=== PATIENT | female | born 1940 | race Asian ===

== ENCOUNTER 2019-05-31 08:34 | Inpatient (IN) | payer OTHER, BC ==
--- NOTE | 2019-05-31 09:19 | PDOC ---
History of Present Illness - General Chief Complaint: Rectal Bleed Stated Complaint: ABD PAIN / RECTAL BLEED Time Seen by Provider: 05/31/19 09:19 Past History - Past Medical History Allergies/Adverse Reactions: Allergies Allergy/AdvReac Type Severity Reaction Status Date / Time Penicillins Allergy Verified 05/31/19 08:52 Tetanus Vaccines and Toxoid Allergy Verified 05/31/19 08:52 [Tetanus Vaccines & Toxoid] Anemia: No Asthma: No Cancer: No Cardiac Disorders: No CVA: No COPD: No CHF: No Dementia: No Diabetes: No GI Disorders: No Disorders: No HTN: Yes Hypercholesterolemia: Yes Liver Disease: No Psychiatric Problems: Yes (Zoloft) Seizures: No Thyroid Disease: No - Surgical History Abdominal Surgery: No Appendectomy: No Cardiac Surgery: No Cholecystectomy: No Lung Surgery: No Neurologic Surgery: No Orthopedic Surgery: No - Immunization History Immunization Up to Date: Yes - Psycho Social/Smoking Cessation Hx Smoking History: Never smoked Have you smoked in the past 12 months: No If you are a former smoker, when did you quit?: 15 YRS AGO Information on smoking cessation initiated: No Hx Alcohol Use: No Drug/Substance Use Hx: No Substance Use Type: Alcohol Hx Substance Use Treatment: No *Physical Exam - Vital Signs Last Vital Signs Temp Pulse Resp BP Pulse Ox 98.5 F 84 17 120/72 98 05/31/19 08:52 05/31/19 08:52 05/31/19 08:52 05/31/19 08:52 05/31/19 08:52
[2019-05-31] MEDS ORDERED: PANTOPRAZOLE SODIUM 40 MG VIAL IVPUSH ONE (10:07)
--- NOTE | 2019-05-31 10:25 | PDOC ---
History of Present Illness - General Chief Complaint: Rectal Bleed Stated Complaint: ABD PAIN / RECTAL BLEED Time Seen by Provider: 05/31/19 09:19 History Source: Patient Exam Limitations: No Limitations - History of Present Illness Initial Comments: 06/02/19 12:11 HPI: 78F PMH HTN HLD c/o 2 days of generalized abdominal pain that feels like "an intense need to go" followed by rectal bleeding. Pain resolves after BM. Pt states she was straining yesterday around 6:30pm, stool had blood, followed by bright red blood episodes. Never had similar episodes before. Endorses frequent occasional use of NSAIDs recently for neck pain. Endorses nausea and vomiting ( nbnb, yesterday). Denies f/c, cp/sob, po intolerance. Denies h/o VTE, CVA. h/o hysterectomy. Had colonoscopy in the past but says she is probably due for one; pt states her GI doc retired. PCP Dr Butler Past History - Past Medical History Allergies/Adverse Reactions: Allergies Allergy/AdvReac Type Severity Reaction Status Date / Time Penicillins Allergy Verified 05/31/19 08:52 Tetanus Vaccines and Toxoid Allergy Verified 05/31/19 08:52 [Tetanus Vaccines & Toxoid] Home Medications: Ambulatory Orders Chlorpheniramine Maleate [Allergy Relief] 4 mg PO PRN 05/31/19 Ibuprofen [Advil -] 200 mg PO PRN PRN 05/31/19 Sertraline HCl 75 mg PO DAILY 05/31/19 Anemia: No Asthma: No Cancer: No Cardiac Disorders: No CVA: No COPD: No CHF: No Dementia: No Diabetes: No GI Disorders: No Disorders: No HTN: Yes Hypercholesterolemia: Yes Liver Disease: No Psychiatric Problems: Yes (Zoloft) Seizures: No Thyroid Disease: No - Surgical History Abdominal Surgery: No Appendectomy: No Cardiac Surgery: No Cholecystectomy: No Lung Surgery: No Neurologic Surgery: No Orthopedic Surgery: No - Immunization History Immunization Up to Date: Yes - Psycho Social/Smoking Cessation Hx Smoking History: Never smoked Have you smoked in the past 12 months: No If you are a former smoker, when did you quit?: 15 YRS AGO Information on smoking cessation initiated: No Hx Alcohol Use: No Drug/Substance Use Hx: No Substance Use Type: Alcohol Hx Substance Use Treatment: No Review of Systems - Review of Systems Able to Perform ROS?: Yes Comments:: 06/02/19 12:12 ROS: CONSTITUTIONAL: Denies F / C HEENT: Endorses one month of lightheadedness/dizziness RESP: Denies SOB CARD: Denies chest pain, palpitations GI: Endorses bloody stool, n/v, straining, occasional generalized abdominal pain. Denies inability to tolerate PO : Denies dysuria, frequency SKIN: Denies rashes NEURO: Denies numbness, tingling, weakness Is the patient limited Slovak proficient: No *Physical Exam - Vital Signs Last Vital Signs Temp Pulse Resp BP Pulse Ox 98.5 F 84 17 120/72 98 05/31/19 08:52 05/31/19 08:52 05/31/19 08:52 05/31/19 08:52 05/31/19 09:10 - Physical Exam Comments: 06/02/19 12:12 PE: GEN: Well appearing, NAD, comfortable. AAOx3 HEENT: NC/AT, EOMI, PERRLA. No facial asymmetry. Moist mucous membranes. Normal voice. Supple neck w/ FROM. CV: S1/S2, RRR, no m/r/g LUNG: CTAB, no wheezes, crackles, rales, rhonchi. GI: soft, ndnt, +BS, no guarding, no rebound. No masses. RECTAL: + hemorrhoid (6 o'clock) on inspection. No active bleeding. Normal sphincter tone. No masses or nodules of the rectal vault palpated. No fecal impaction. + blood on glove. EXTREMITIES: No obvious deformities of all extremities. SKIN: warm, dry, normal turgor PSYCH: normal mood and affect NEURO: Moving all extremities well. ED Treatment Course - LABORATORY CBC & Chemistry Diagram: 06/02/19 08:20 06/02/19 08:20 Medical Decision Making - Medical Decision Making 05/31/19 10:25 MDM: 78F w/ BRBPR x2 days. DDx likely diverticulosis vs ischemic colitis. Unlikely UGI, diverticulitis, hemorrhoidal bleeding - cbc, cmp, lipase, lactase - fobt - ekg - ns - CT a/p EKG HR 82 ND 164 QTS 94 QTc 469 NSR; one PVC on strip 05/31/19 14:23 CT A/P IMPRESSION: Colitis involving the transverse, splenic flexure and descending colon as discussed above. No drainable fluid collections seen. No pneumatosis is identified. Diverticulosis with no evidence to suggest acute diverticulitis within the sigmoid colon. Additional comments noted above. 05/31/19 14:26 - colitis - cipro/flagyl - fluids admit // ADMITTED Discharge - Discharge Information Problems reviewed: Yes Clinical Impression/Diagnosis: Colitis - Admission Yes - Follow up/Referral - Patient Discharge Instructions - Post Discharge Activity
[2019-05-31] MEDS ORDERED: PANTOPRAZOLE SODIUM 40 MG VIAL ONE (10:48)
[2019-05-31 11:36] LABS: BASO % 0.1 % (0-2.0); HEMATOCRIT 40.5 % (32.4-45.2); HEMOGLOBIN 13.6 GM/dL (10.7-15.3); LYMPH % 8.2 % (8-40); MCHC 33.4 g/dl (32.0-36.0); MEAN CELL VOLUME 89.7 fl (80-96); MEAN PLT VOLUME 9.6 fl (7.5-11.1); MONO % 2.2 % (3.8-10.2); NEUT % 89.5 % (42.8-82.8); PLATELET COUNT 181 K/MM3 (134-434); RBC 4.52 M/mm3 (3.60-5.2); RDW 13.6 % (11.6-15.6); WHITE BLOOD COUNT 8.8 K/mm3 (4.0-10.0)
[2019-05-31 11:46] LABS: INR 0.98 (0.83-1.09); PROTHROMBIN TIME (PATIENT) 11.6 SEC (9.7-13.0)
[2019-05-31 11:49] LABS: ACTIVATED PTT 24.5 SECONDS (25.2-36.5)
[2019-05-31 12:00] LABS: ALBUMIN 4.2 g/dl (3.4-5.0); BILIRUBIN,TOTAL 0.7 mg/dL (0.2-1); POTASSIUM 3.7 mmol/L (3.5-5.1); TOT PROT 7.6 g/dl (6.4-8.2)
[2019-05-31] MEDS ORDERED: SODIUM CHLORIDE 0.9% 500 ML INFUS.BAG IV ONE ×2 (12:13→14:49)
--- NOTE | 2019-05-31 12:55 | PDOC ---
Documentation entered by iNda Dobbs SCRIBE, acting as scribe for Deonte Kay MD. Deonte Kay MD: This documentation has been prepared by the Rinku de leon Xhesika, SCRIBE, under my direction and personally reviewed by me in its entirety. I confirm that the documentation accurately reflects all work, treatment, procedures, and medical decision making performed by me. Attending Attestation - Resident Resident Name: NicoHarvey - ED Attending Attestation I have performed the following: I have examined & evaluated the patient, The case was reviewed & discussed with the resident, I agree w/resident's findings & plan, Exceptions are as noted - HPI HPI: 05/31/19 11:32 The patient is an 78 year old female with a PMH of HTN and HLD who presents to the ED for abdominal pain and bright red blood per rectum. Patient notes she was straining while using the bathroom yesterday, followed by bright red blood every 30 min. Patient notes she has been taking Advil for the past 2 weeks. Patient notes her abdominal pain has since resolved. Patient denies being on blood thinners. The patient denies shortness of breath, headache and dizziness. Denies fever, chills, cough, nausea, vomiting, diarrhea and constipation. Denies dysuria, frequency, urgency. Allergies: Penicillins, Tetanus Vaccines and Toxoid Social Hx: Denies current smoking, drinking, or other substance usage. PCP: Dr. Butler - Physicial Exam PE: 05/31/19 11:33 Vitals: Triage Vital signs reviewed General Appearance: no acute distress, well nourished well developed, Neck: Supple;No Nuchal rigidity Chest Wall: Nontender Cardiac: Regular rate and rhythm, no murmurs, no rubs, no gallops, Lungs: Clear to auscultation bilateral, good air movement bilaterally, Abdomen: Soft, nondistended, normal bowel sounds, nontender to palpation Extremities: Full range of motion to all extremities, no cyanosis, clubbing, or edema Skin: Warm and dry, no rashes or lesions, no petechiae Neuro: AOX3; Cranial Nerves 2-12 grossly c intact, Strength intact to all extremities, Sensation intact to all extremities, gait normal Psych: normal mood, normal affect - Medical Decision Making 11/15/19 16:21 CT with evidence of colitis involving the transverse splenic flexure and descending colon Given pain bloody diarrhea and colitis will admit to hospital for IV antibiotics and further management
--- NOTE | 2019-05-31 13:22 | EKG ---
Test Reason : Blood Pressure : / mmHG Vent. Rate : 082 BPM Atrial Rate : 082 BPM P-R Int : 164 ms QRS Dur : 094 ms QT Int : 402 ms P-R-T Axes : 057 062 039 degrees QTc Int : 469 ms SINUS RHYTHM WITH SINUS ARRHYTHMIA WITH OCCASIONAL PREMATURE VENTRICULAR COMPLEXES POSSIBLE LEFT ATRIAL ENLARGEMENT WHEN COMPARED WITH ECG OF 08-FEB-2014 22:17, PREMATURE VENTRICULAR COMPLEXES ARE NOW PRESENT Confirmed by MALACHI WADE, URBANO ([id number]) on 05/31/2019 1:21:46 PM Referred By: Confirmed By:URBANO LY MD
[2019-05-31] MEDS ORDERED: CIPROFLOXACIN 400 MG/D5W 400 MG/200 ML IVPB IVPB ONE (14:47)
--- NOTE | 2019-05-31 15:43 | HP ---
CHIEF COMPLAINT: abdominal pain, rectal bleeding at home PCP: Dr. Butler HISTORY OF PRESENT ILLNESS: Patient is an 78 year old female with a significant past medical history of arthritic neck pain, hypertension, hyperlipidemia that comes in to [facility] ED with two days of generalzed abdominal cramps and pain with the urge to defecate. She reports having rectal bleeding a few times last night at home. Patient reports straining to have a bowel movement at home and had a bloody bowel movement, followed by more bloody bowel movements throughout the night. She denies any nausea or vomiting currently but had nausea/vomiting last night. Patient takes Advil throughout the day for neck pain and states neck pain has been chronic for years. She has seen a neurologist but not currently. She takes Advil is the only medication that has helped her for the neck pain. In the ED her hmg/hct remained stable and since admission reports three episodes of GI bleed associated with abdominal cramps that are severe. She is being admitted for colitis, will remain NPO with prophylactic antibiotics. She was given Cipro and Flagyl in the ED. Will monitor intake and output and repeat CBC tonight at 10pm. Will treat pain with IV Tylenol and avoid narcotics and will give if tylenol is not working and abdominal pain is severe. ER course was notable for: (1) stable hmg/hct (2) 3 episodes of karmen red gi bleeding, one witnessed by me (karmen red, moderate). repeat hmg/hct at 10pm today and if continues to bleed, please send stat cbc. (3) ct scan: colitis involving the transverse, spenic flexure and descending colon Recent Travel: denies PAST MEDICAL HISTORY: arthritic neck pain, hypertension, hyperlipidemia PAST SURGICAL HISTORY: colonoscopy in past, does not recall results, right groin lesion/mass with excision 2015 Social History: Smoking: denies Alcohol: none reported Drugs: none reported Allergies Penicillins Allergy (Verified 05/31/19 08:52) Tetanus Vaccines and Toxoid [Tetanus Vaccines & Toxoid] Allergy (Verified 08:52) HOME MEDICATIONS: Home Medications Medication Instructions Recorded Chlorpheniramine Maleate [Allergy 4 mg PO PRN 05/31/19 Relief] Ibuprofen [Advil -] 200 mg PO PRN PRN 05/31/19 Sertraline HCl 75 mg PO DAILY 05/31/19 REVIEW OF SYSTEMS CONSTITUTIONAL: Absent: fever, chills, diaphoresis, generalized weakness, malaise, loss of appetite, weight change HEENT: Absent: rhinorrhea, nasal congestion, throat pain, throat swelling, difficulty swallowing, mouth swelling, ear pain, eye pain, visual changes CARDIOVASCULAR: Absent: chest pain, syncope, palpitations, irregular heart rate, lightheadedness , peripheral edema RESPIRATORY: Absent: cough, shortness of breath, dyspnea with exertion, orthopnea, wheezing, stridor, hemoptysis GASTROINTESTINAL: present: abdominal pain, nausea, vomiting, hematochezia GENITOURINARY: Absent: dysuria, frequency, urgency, hesitancy, hematuria, flank pain, genital pain MUSCULOSKELETAL: Absent: myalgia, arthralgia, joint swelling, back pain, neck pain SKIN: Absent: rash, itching, pallor HEMATOLOGIC/IMMUNOLOGIC: Absent: easy bleeding, easy bruising, lymphadenopathy, frequent infections ENDOCRINE: Absent: unexplained weight gain, unexplained weight loss, heat intolerance, cold intolerance NEUROLOGIC: Absent: headache, focal weakness or paresthesias, dizziness, unsteady gait, seizure, mental status changes, bladder or bowel incontinence PSYCHIATRIC: Absent: anxiety, depression, suicidal or homicidal ideation, hallucinations. PHYSICAL EXAMINATION Vital Signs - 24 hr 05/31/19 05/31/19 08:52 09:10 Temperature 98.5 F Pulse Rate 84 Respiratory 17 Rate Blood Pressure 120/72 O2 Sat by Pulse 98 98 Oximetry (%) GENERAL: Awake, alert, and fully oriented, in no acute distress. HEAD: Normal with no signs of trauma. EYES: Pupils equal, round and reactive to light, extraocular movements intact, sclera anicteric, conjunctiva clear. No lid lag. EARS, NOSE, THROAT: Ears normal, nares patent, oropharynx clear without exudates. Moist mucous membranes. NECK: Normal range of motion, supple without lymphadenopathy, JVD, or masses. LUNGS: Breath sounds equal, clear to auscultation bilaterally. HEART: Regular rate and rhythm, normal S1 and S2 without murmur, rub or gallop. ABDOMEN: Soft, nontender, some pain on lower quadrants with light palpation, non distended MUSCULOSKELETAL: Normal range of motion at all joints. No bony deformities or tenderness. No CVA tenderness. UPPER EXTREMITIES: No peripheral edema. LOWER EXTREMITIES: No peripheral edema. NEUROLOGICAL: Normal speech. Normal gait. PSYCHIATRIC: Cooperative. Good eye contact. Appropriate mood and affect. SKIN: Warm, dry, normal turgor, no rashes or lesions noted, normal capillary refill. Laboratory Results - last 24 hr 05/31/19 05/31/19 05/31/19 11:00 11:00 11:00 WBC 8.8 RBC 4.52 Hgb 13.6 Hct 40.5 MCV 89.7 MCH 30.0 MCHC 33.4 RDW 13.6 Plt Count 181 MPV 9.6 Absolute Neuts (auto) 7.8 Neutrophils % 89.5 H D Lymphocytes % 8.2 D Monocytes % 2.2 L Eosinophils % 0.0 D Basophils % 0.1 Nucleated RBC % 0 PT with INR INR PTT (Actin FS) Sodium 141 Potassium 3.7 Chloride 104 Carbon Dioxide 28 Anion Gap 8 BUN 30.0 H Creatinine 1.0 Est GFR (CKD-EPI)AfAm 61.62 Est GFR (CKD-EPI)NonAf 53.17 Random Glucose 153 H Lactic Acid 1.5 Calcium 9.0 Total Bilirubin 0.7 AST 22 ALT 26 Alkaline Phosphatase 95 Total Protein 7.6 Albumin 4.2 Total Amylase 80 Lipase 77 Stool Occult Blood Blood Type Antibody Screen 05/31/19 05/31/19 05/31/19 11:00 11:00 11:00 WBC RBC Hgb Hct MCV MCH MCHC RDW Plt Count MPV Absolute Neuts (auto) Neutrophils % Lymphocytes % Monocytes % Eosinophils % Basophils % Nucleated RBC % PT with INR 11.60 INR 0.98 PTT (Actin FS) 24.5 L Sodium Potassium Chloride Carbon Dioxide Anion Gap BUN Creatinine Est GFR (CKD-EPI)AfAm Est GFR (CKD-EPI)NonAf Random Glucose Lactic Acid Calcium Total Bilirubin AST ALT Alkaline Phosphatase Total Protein Albumin Total Amylase Lipase Stool Occult Blood Positive Blood Type O POSITIVE Antibody Screen Negative ASSESSMENT/PLAN: Family Medical History Family History: Denies Problem List - Problem (1) Ischemic colitis Assessment/Plan: Pateint reports karmen red blood by rectum at home with 3 episodes since admission. cbc stable will repeat at 10pm tonight. stool occult blood positive monitor cbc monitor output received cipro and flagyl NS @ 100cc/hr hold all PO meds and monitor BP Code(s): K55.9 - VASCULAR DISORDER OF INTESTINE, UNSPECIFIED (2) Hypertension Assessment/Plan: holding cardiac meds, may need IV if BP elevated Code(s): I10 - ESSENTIAL (PRIMARY) HYPERTENSION (3) Hyperlipidemia Assessment/Plan: hold meds for now, re start when tolerating PO Code(s): E78.5 - HYPERLIPIDEMIA, UNSPECIFIED (4) Prophylactic antibiotic Assessment/Plan: received cipro and flagyl in the ED seen by GI specialist who recommends Levaquin and Flagyl monitor WBC, fever curve Code(s): Z79.2 - [facility] (CURRENT) USE OF ANTIBIOTICS (5) Skin lesion Assessment/Plan: history, skin lesion removed 2015 Code(s): L98.9 - DISORDER OF THE SKIN AND SUBCUTANEOUS TISSUE, UNSPECIFIED (6) Prophylactic measure Assessment/Plan: fen NS @ 100 monitor electrolytes, mag, k, if low, change ivf npo, advance diet per gi full code Code(s): Z29.9 - ENCOUNTER FOR PROPHYLACTIC MEASURES, UNSPECIFIED Visit type - Emergency Visit Emergency Visit: Yes ED Registration Date: 05/31/19 Care time: The patient presented to the Emergency Department on the above date and was hospitalized for further evaluation of their emergent condition. - New Patient This patient is new to me today: Yes Date on this admission: 05/31/19 - Critical Care Critical Care patient: No
[2019-05-31] MEDS ORDERED: SODIUM CHLORIDE 1,000 ML IV SCH (15:45)
--- NOTE | 2019-05-31 17:23 | CON.GI ---
Consult Consult Specialty:: GI Referred by:: Hospitalist Service Reason for Consultation:: Rectal bleeding and colitis on CT scan - History of Present Illness Chief Complaint: abdominal pain and Rectal bleeding History of Present Illness: 78F admitted through [facility] ER for evaluation of abdominal pain and rectal bleeding. She states that she was in her USOH up until last night when she developed abdominal pain "05/26" followed by bouts of bright red blood per rectum. She denies any diarrhea, recent travel or antibiotic use. The pain and bleeding persisted prompting ER visit. Noted normal CBC on admission. CT scan revealed a left sided colitis up to the level of the distal transverse colon. She denies similar episodes in the past and believes that she had a colonoscopy about 15 years ago that was unrevealing. There is no family history of IBD or other GI malignancy. She felt warm to touch during my exam and had temp 100 rectally - History Source History Provided By: Patient, Medical Record - Past Medical History Cardio/Vascular: Yes: Hyperlipdemia. No: CHF, [place] Psych: Yes: Depression ENT: Yes: Other (strabismus surgery as a child) - Past Surgical History Past Surgical History: Yes: Hysterectomy (had complications with ureter during AIDEN, surgery was in 1978, no residual problems) - Alcohol/Substance Use Hx Alcohol Use: No - Smoking History Smoking history: Former smoker Have you smoked in the past 12 months: No If you are a former smoker, when did you quit?: 15 YRS AGO - Social History ADL: Independent History of Recent Travel: No Home Medications - Allergies Allergies/Adverse Reactions: Allergies Allergy/AdvReac Type Severity Reaction Status Date / Time Penicillins Allergy Verified 05/31/19 08:52 Tetanus Vaccines and Toxoid Allergy Verified 05/31/19 08:52 [Tetanus Vaccines & Toxoid] - Home Medications Home Medications: Ambulatory Orders Chlorpheniramine Maleate [Allergy Relief] 4 mg PO PRN 05/31/19 Ibuprofen [Advil -] 200 mg PO PRN PRN 05/31/19 Sertraline HCl 75 mg PO DAILY 05/31/19 Family Medical History Other Family History: Mother: : 56 CVA. Father: : 72: [place]. 3 brothers, 7 sisters: 1 sister : [place]. No children. No family history of colorectal cancer, IBD or other GI malignancy Review of Systems - Review of Systems Constitutional: reports: Chills Cardiovascular: denies: Chest Pain Gastrointestinal: reports: Abdominal Pain, Rectal Bleeding. denies: Diarrhea Physical Exam-GI Vital Signs: Vital Signs T: 100 rectally 16:30 Constitutional: Yes: Calm Eyes: No: Sclera Icterus Cardiovascular: Yes: Tachycardia ...Rectal Exam: Yes: Other (No external lesions, no masses, no blood or stool) Edema: No (No LE edema) Neurological: Yes: Alert Labs: CBC, BMP 05/31/19 11:00 05/31/19 11:00 INR, PTT INR 0.98 (0.83-1.09) 05/31/19 11:00 Problem List - Problems (1) Ischemic colitis Assessment/Plan: Given patients age, acuity of the onset of symptoms, distribution of colitis and rectal bleeding without much change in hemodymanics / H/H, suspect ischemic colitis. Low grade temps Advise: NPO IV hydration Monitor H/H and for significant GI bleeding Avoid NSAIDs Blood cultures ordered and started Abx. levaquin / flagyl for now. If worsening fevers, leukocytosis, consider ID consult Will follow with you Dr. Shepherd is covering the weekend Code(s): K55.9 - VASCULAR DISORDER OF INTESTINE, UNSPECIFIED
[2019-05-31] MEDS ORDERED: ACETAMINOPHEN 1000 MG/100 ML VIAL (NON FORMULARY) IVPB PRN (17:36)
[2019-05-31] MEDS ORDERED: PANTOPRAZOLE SODIUM 80 MG in SODIUM CHLORIDE 100 ML IVPB SCH (17:45)
[2019-05-31] MEDS ORDERED: morphine CARPU-JECT 2 MG/1 ML DISP.SYRIN IVPUSH PRN (17:51)
[2019-05-31] MEDS ORDERED: MORPHINE SULFATE 2 MG/ML VIAL IVPUSH PRN (18:03)
[2019-05-31] MEDS: SODIUM CHLORIDE 1,000 ML IV SCH (18:17)
[2019-05-31] MEDS ORDERED: PANTOPRAZOLE SODIUM 40 MG VIAL IVPUSH SCH (22:00)
[2019-05-31 22:04] LABS: HEMATOCRIT 33.8 % (32.4-45.2); HEMOGLOBIN 11.3 GM/dL (10.7-15.3); MCHC 33.4 g/dl (32.0-36.0); MEAN CELL VOLUME 89.7 fl (80-96); MEAN PLT VOLUME 9.2 fl (7.5-11.1); PLATELET COUNT 147 K/MM3 (134-434); RBC 3.77 M/mm3 (3.60-5.2); RDW 13.7 % (11.6-15.6)
[2019-05-31 22:35] LABS: BILIRUBIN,TOTAL 0.7 mg/dL (0.2-1); BLOOD UREA NITROGEN 18.9 mg/dL (7-18); CALCIUM 7.6 mg/dL (8.5-10.1); CREATININE 0.7 mg/dL (0.55-1.3); POTASSIUM 3.3 mmol/L (3.5-5.1); TOT PROT 5.4 g/dl (6.4-8.2)
[2019-06-01 06:41] LABS: BASO % 0.5 % (0-2.0); EOS % 0.5 % (0-4.5); HEMATOCRIT 33.9 % (32.4-45.2); HEMOGLOBIN 11.3 GM/dL (10.7-15.3); LYMPH % 19.7 % (8-40); MCH 30.1 pg (25.7-33.7); MCHC 33.3 g/dl (32.0-36.0); MEAN CELL VOLUME 90.4 fl (80-96); MEAN PLT VOLUME 9.2 fl (7.5-11.1); MONO % 7.1 % (3.8-10.2); NEUT % 72.2 % (42.8-82.8); PLATELET COUNT 140 K/MM3 (134-434); RBC 3.74 M/mm3 (3.60-5.2); RDW 13.5 % (11.6-15.6); WHITE BLOOD COUNT 8.4 K/mm3 (4.0-10.0)
[2019-06-01 06:51] LABS: INR 1.12 (0.83-1.09); PROTHROMBIN TIME (PATIENT) 13.2 SEC (9.7-13.0)
[2019-06-01 06:58] LABS: BLOOD UREA NITROGEN 18.9 mg/dL (7-18); CALCIUM 7.5 mg/dL (8.5-10.1); CREATININE 0.7 mg/dL (0.55-1.3); POTASSIUM 3.3 mmol/L (3.5-5.1)
[2019-06-01] MEDS: KCL 10 MEQ IVPB 10 MEQ/100 ML INFUS.BAG IVPB SCH ×2 (09:58→10:52)
--- NOTE | 2019-06-01 11:42 | CON.ID ---
Consult Consult Specialty:: infectious diseases Referred by:: [place] Reason for Consultation:: colitis - History of Present Illness Chief Complaint: abd olmstead,bleeding per rectum History of Present Illness: 78 year old female with a significant past medical history of arthritic neck pain, hypertension, hyperlipidemia that came to ED with two days of generalzed abdominal cramps and pain with the urge to defecate. She reports having rectal bleeding a few times couple of days back. Patient reports straining to have a bowel movement at home and had a bloody bowel movement, followed by more bloody bowel movements throughout the night. She denies any nausea or vomiting currently but had nausea/vomiting last night. Patient takes Advil throughout the day for neck pain and states neck pain has been chronic for years. She has seen a neurologist but not currently. She takes Advil is the only medication that has helped her for the neck pain. patient mentions that she has abd pain,but now is better after pain medication still having bleeding in stools,says it is bright red and clots - History Source History Provided By: Patient Limitations to Obtaining History: No Limitations - Past Medical History Cardio/Vascular: Yes: Hyperlipdemia. No: CHF, [place] Psych: Yes: Depression ENT: Yes: Other (strabismus surgery as a child) - Past Surgical History Past Surgical History: Yes: Hysterectomy (had complications with ureter during AIDEN, surgery was in 1978, no residual problems) - Alcohol/Substance Use Hx Alcohol Use: No - Smoking History Smoking history: Never smoked Have you smoked in the past 12 months: No If you are a former smoker, when did you quit?: 15 YRS AGO - Social History ADL: Independent History of Recent Travel: No Home Medications - Allergies Allergies/Adverse Reactions: Allergies Allergy/AdvReac Type Severity Reaction Status Date / Time Penicillins Allergy Verified 05/31/19 08:52 Tetanus Vaccines and Toxoid Allergy Verified 05/31/19 08:52 [Tetanus Vaccines & Toxoid] - Home Medications Home Medications: Ambulatory Orders Chlorpheniramine Maleate [Allergy Relief] 4 mg PO PRN 05/31/19 Ibuprofen [Advil -] 200 mg PO PRN PRN 05/31/19 Sertraline HCl 75 mg PO DAILY 05/31/19 Review of Systems - Review of Systems Constitutional: reports: No Symptoms Eyes: reports: No Symptoms HENT: reports: No Symptoms Neck: reports: No Symptoms Cardiovascular: reports: No Symptoms Respiratory: reports: No Symptoms Gastrointestinal: reports: Abdominal Pain, Melena Genitourinary: reports: No Symptoms Musculoskeletal: reports: No Symptoms Integumentary: reports: No Symptoms Endocrine: reports: No Symptoms Hematology/Lymphatic: reports: No Symptoms Psychiatric: reports: No Symptoms Physical Exam Vital Signs: Vital Signs Temperature 98.1 F 06/01/19 09:01 Pulse Rate 92 H 06/01/19 09:01 Respiratory Rate 18 06/01/19 09:01 Blood Pressure 129/61 06/01/19 09:01 O2 Sat by Pulse Oximetry (%) 97 06/01/19 09:00 Constitutional: Yes: Well Nourished, No Distress, Calm Eyes: Yes: Conjunctiva Clear Cardiovascular: Yes: Regular Rate and Rhythm Respiratory: Yes: Regular, CTA Bilaterally Gastrointestinal: Yes: Soft, Hypoactive Bowel Sounds Musculoskeletal: Yes: WNL Extremities: Yes: WNL Neurological: Yes: Alert, Oriented Psychiatric: Yes: Alert, Oriented Labs: CBC, BMP 06/01/19 06:31 06/01/19 06:20 Assessment/Plan Problem List - Problem (1) Ischemic colitis Code(s): K55.9 - VASCULAR DISORDER OF INTESTINE, UNSPECIFIED (2) Hypertension Code(s): I10 - ESSENTIAL (PRIMARY) HYPERTENSION (3) Hyperlipidemia Code(s): E78.5 - HYPERLIPIDEMIA, UNSPECIFIED (4) Prophylactic antibiotic Code(s): Z79.2 - [facility] (CURRENT) USE OF ANTIBIOTICS (5) Skin lesion Assessment/Plan: history, skin lesion removed 2015 Code(s): L98.9 - DISORDER OF THE SKIN AND SUBCUTANEOUS TISSUE, UNSPECIFIED Code(s): Z29.9 - ENCOUNTER FOR PROPHYLACTIC MEASURES, UNSPECIFIED plan npo iv abx monitor h and h gi on board rest as per the team
--- NOTE | 2019-06-01 17:00 | PN ---
Physical Exam: SUBJECTIVE: Patient seen and examined at the bedside. reports 3 episodes of bloody stools overnight and one today. no abdominal pain today. wants to eat , will allow ice chips but remains NPO otherwise. OBJECTIVE: Patient is an 78 year old female with a significant past medical history of arthritic neck pain, hypertension, hyperlipidemia that comes in to [facility] ED with two days of generalized abdominal cramps and pain with the urge to defecate. She reports having rectal bleeding a few times at home. Patient takes Advil at home for neck pain and states neck pain has been chronic for years. She is being admitted for ischemic colitis/gi bleed. Vital Signs Period Temp Pulse Resp BP Sys/Montiel Pulse Ox Last 24 Hr 97.9 F-99 F 70-92 18-20 120-162/51-80 97-99 GENERAL: Awake, alert, and fully oriented, in no acute distress. HEAD: Normal with no signs of trauma. EYES: Pupils equal, round and reactive to light, extraocular movements intact, sclera anicteric, conjunctiva clear. No lid lag. EARS, NOSE, THROAT: Ears normal, nares patent, oropharynx clear without exudates. Moist mucous membranes. NECK: Normal range of motion, supple without lymphadenopathy, JVD, or masses. LUNGS: Breath sounds equal, clear to auscultation bilaterally. HEART: Regular rate and rhythm, normal S1 and S2 without murmur, rub or gallop. ABDOMEN: Soft, nontender, some pain on lower quadrants with light palpation, non distended MUSCULOSKELETAL: Normal range of motion at all joints. No bony deformities or tenderness. No CVA tenderness. UPPER EXTREMITIES: No peripheral edema. LOWER EXTREMITIES: No peripheral edema. NEUROLOGICAL: Normal speech. Normal gait. PSYCHIATRIC: Cooperative. Good eye contact. Appropriate mood and affect. SKIN: Warm, dry, normal turgor, no rashes or lesions noted, normal capillary refill. Laboratory Results - last 24 hr 05/31/19 05/31/19 05/31/19 21:30 21:30 21:30 WBC 10.0 RBC 3.77 Hgb 11.3 Hct 33.8 D MCV 89.7 MCH 30.0 MCHC 33.4 RDW 13.7 Plt Count 147 MPV 9.2 Absolute Neuts (auto) Neutrophils % Lymphocytes % Monocytes % Eosinophils % Basophils % Nucleated RBC % PT with INR INR Sodium 144 Potassium 3.3 L Chloride 112 H Carbon Dioxide 24 Anion Gap 8 BUN 18.9 H Creatinine 0.7 Est GFR (CKD-EPI)AfAm 94.84 Est GFR (CKD-EPI)NonAf 81.83 POC Glucometer Random Glucose 97 Calcium 7.6 L Phosphorus Magnesium Total Bilirubin 0.7 AST 17 ALT 17 Alkaline Phosphatase 66 C-Reactive Protein Total Protein 5.4 L Albumin 3.0 L Blood Type O POSITIVE 05/31/19 06/01/19 06/01/19 23:06 05:42 06:20 WBC RBC Hgb Hct MCV MCH MCHC RDW Plt Count MPV Absolute Neuts (auto) Neutrophils % Lymphocytes % Monocytes % Eosinophils % Basophils % Nucleated RBC % PT with INR 13.20 H INR 1.12 H Sodium Potassium Chloride Carbon Dioxide Anion Gap BUN Creatinine Est GFR (CKD-EPI)AfAm Est GFR (CKD-EPI)NonAf POC Glucometer 95 88 Random Glucose Calcium Phosphorus Magnesium Total Bilirubin AST ALT Alkaline Phosphatase C-Reactive Protein Total Protein Albumin Blood Type 06/01/19 06/01/19 06:20 06:31 WBC 8.4 RBC 3.74 Hgb 11.3 Hct 33.9 MCV 90.4 MCH 30.1 MCHC 33.3 RDW 13.5 Plt Count 140 MPV 9.2 Absolute Neuts (auto) 6.1 Neutrophils % 72.2 Lymphocytes % 19.7 D Monocytes % 7.1 D Eosinophils % 0.5 D Basophils % 0.5 D Nucleated RBC % 0 PT with INR INR Sodium 144 Potassium 3.3 L Chloride 115 H Carbon Dioxide 25 Anion Gap 4 L BUN 18.9 H Creatinine 0.7 Est GFR (CKD-EPI)AfAm 94.84 Est GFR (CKD-EPI)NonAf 81.83 POC Glucometer Random Glucose 87 Calcium 7.5 L Phosphorus 2.0 L Magnesium 2.0 Total Bilirubin AST ALT Alkaline Phosphatase C-Reactive Protein 0.4 H Total Protein Albumin Blood Type Active Medications Generic Name Dose Route Start Last Admin Trade Name Freq PRN Reason Stop Dose Admin Acetaminophen 1,000 mg 05/31/19 17:36 Ofirmev Injection - IVPB Q6H PRN PAIN LEVEL 7 - 10 Sodium Chloride 1,000 mls @ 100 mls/hr 05/31/19 17:34 05/31/19 18:17 Normal Saline - IV 100 mls/hr ASDIR FREDY Administration Metronidazole 500 mg in 100 mls @ 100 mls/hr 05/31/19 18:00 06/01/19 10:00 Flagyl 500mg Premixed Ivpb - IVPB 100 mls/hr Q8H-IV FREDY Administration Levofloxacin 750 mg in 150 mls @ 150 mls/hr 06/02/19 10:00 Levaquin 750 Mg Premixed Ivpb - IVPB DAILY FREDY Protocol Morphine Sulfate 1 mg 05/31/19 18:03 Morphine Sulfate IVPUSH Q4H PRN PAIN LEVEL 7 - 10 ASSESSMENT/PLAN: Problem List - Problems (1) Ischemic colitis Assessment/Plan: three episodes of rectal bleed overnight and once today. hmg/hct stable. on levaquin and flagyl NS @ 100cc/hr hold all PO meds and monitor BP npo except for ice chips Code(s): K55.9 - VASCULAR DISORDER OF INTESTINE, UNSPECIFIED (2) Hypertension Assessment/Plan: holding cardiac meds, may need IV if BP elevated Code(s): I10 - ESSENTIAL (PRIMARY) HYPERTENSION (3) Hyperlipidemia Assessment/Plan: hold meds for now, re start when tolerating PO Code(s): E78.5 - HYPERLIPIDEMIA, UNSPECIFIED (4) Prophylactic antibiotic Assessment/Plan: levaquin and flagyl for ischemic colitis Code(s): Z79.2 - RESIDENTIAL (CURRENT) USE OF ANTIBIOTICS (5) Skin lesion Assessment/Plan: history, skin lesion removed 2015 Code(s): L98.9 - DISORDER OF THE SKIN AND SUBCUTANEOUS TISSUE, UNSPECIFIED (6) Prophylactic measure Assessment/Plan: fen NS @ 100 monitor electrolytes, mag, k, if low, change ivf npo, advance diet per gi/ice chips ok full code Code(s): Z29.9 - ENCOUNTER FOR PROPHYLACTIC MEASURES, UNSPECIFIED Visit type - Emergency Visit Emergency Visit: Yes ED Registration Date: 05/31/19 Care time: The patient presented to the Emergency Department on the above date and was hospitalized for further evaluation of their emergent condition. - New Patient This patient is new to me today: No - Critical Care Critical Care patient: No - Discharge Referral Referred to [facility] No
[2019-06-01] MEDS: SODIUM CHLORIDE 1,000 ML IV SCH ×2 (18:18→23:59)
[2019-06-02] MEDS ORDERED: DEXTROSE 50%-WATER - 25 GM/50 ML VIAL IVPUSH ONE (05:42)
[2019-06-02] MEDS ORDERED: DEXTROSE 50%-WATER - 25 GM/50 ML VIAL ONE (05:54)
[2019-06-02 08:46] LABS: BASO % 0.6 % (0-2.0); EOS % 0.6 % (0-4.5); HEMATOCRIT 32.2 % (32.4-45.2); HEMOGLOBIN 10.7 GM/dL (10.7-15.3); LYMPH % 14.6 % (8-40); MCHC 33.3 g/dl (32.0-36.0); MEAN CELL VOLUME 90.1 fl (80-96); MEAN PLT VOLUME 8.7 fl (7.5-11.1); MONO % 4.3 % (3.8-10.2); NEUT % 79.9 % (42.8-82.8); PLATELET COUNT 131 K/MM3 (134-434); RBC 3.58 M/mm3 (3.60-5.2); RDW 13.5 % (11.6-15.6); WHITE BLOOD COUNT 7.1 K/mm3 (4.0-10.0)
[2019-06-02] MEDS: KCL 10 MEQ IVPB 10 MEQ/100 ML INFUS.BAG IVPB SCH ×2 (08:54→10:18)
[2019-06-02 09:07] LABS: ALBUMIN 2.8 g/dl (3.4-5.0); BILIRUBIN,TOTAL 0.6 mg/dL (0.2-1); BLOOD UREA NITROGEN 13.6 mg/dL (7-18); CALCIUM 7.5 mg/dL (8.5-10.1); CREATININE 0.6 mg/dL (0.55-1.3); MAGNESIUM 1.9 mg/dL (1.8-2.4); POTASSIUM 3.4 mmol/L (3.5-5.1)
--- NOTE | 2019-06-02 10:31 | PN ---
Progress Note (short form) - Note Progress Note: Pt's only complaint today is neck pain. No abdominal pain. No tenderness on even deep palpation. No rebound tenderness. CBC WBC 7.1 K/mm3 (4.0-10.0) 06/02/19 08:20 RBC 3.58 M/mm3 (3.60-5.2) L 06/02/19 08:20 Hgb 10.7 GM/dL (10.7-15.3) 06/02/19 08:20 Hct 32.2 % (32.4-45.2) L 06/02/19 08:20 MCV 90.1 fl (80-96) 06/02/19 08:20 MCH 30.0 pg (25.7-33.7) 06/02/19 08:20 MCHC 33.3 g/dl (32.0-36.0) 06/02/19 08:20 RDW 13.5 % (11.6-15.6) 06/02/19 08:20 Plt Count 131 K/MM3 (134-434) L 06/02/19 08:20 MPV 8.7 fl (7.5-11.1) 06/02/19 08:20 Absolute Neuts (auto) 5.7 K/mm3 (1.5-8.0) 06/02/19 08:20 Neutrophils % 79.9 % (42.8-82.8) 06/02/19 08:20 Lymphocytes % 14.6 % (8-40) D 06/02/19 08:20 Monocytes % 4.3 % (3.8-10.2) 06/02/19 08:20 Eosinophils % 0.6 % (0-4.5) 06/02/19 08:20 Basophils % 0.6 % (0-2.0) 06/02/19 08:20 Nucleated RBC % 0 % (0-0) 06/02/19 08:20 WBC normal, blood cultures negative. CT scan reviewed; patient's maximal area of colon inflammation is, to my reading, in the upper left colon/splenic flexure area. This is typical of ischemic colitis. Recommend: 1) Begin regular diet. 2) Discontinue antibiotics. 3) Colonoscopy in about 6 weeks.
[2019-06-02] MEDS ORDERED: ACETAMINOPHEN 325 MG TABLET (FP) PO PRN (10:39)
[2019-06-02 12:19] VITALS: BMI 26.3
--- NOTE | 2019-06-02 12:30 | PN ---
Progress Note, Physician History of Present Illness: stable abd pain resolved still with bleeding - Current Medication List Current Medications: Active Medications Acetaminophen (Tylenol -) 650 mg PO Q6H PRN PRN Reason: PAIN LEVEL 7 - 10 Sodium Chloride (Normal Saline -) 1,000 mls @ 100 mls/hr IV ASDIR FREDY Last Admin: 06/01/19 23:59 Dose: 100 mls/hr - Objective Vital Signs: Vital Signs Temperature 98.4 F 06/02/19 08:56 Pulse Rate 68 06/02/19 08:56 Respiratory Rate 20 06/02/19 08:56 Blood Pressure 142/62 06/02/19 08:56 O2 Sat by Pulse Oximetry (%) 97 06/02/19 09:00 Constitutional: Yes: No Distress, Calm Cardiovascular: Yes: S1, S2 Respiratory: Yes: Regular, CTA Bilaterally Gastrointestinal: Yes: Soft Musculoskeletal: Yes: WNL Extremities: Yes: WNL Neurological: Yes: Alert, Oriented Psychiatric: Yes: Alert, Oriented Labs: CBC, BMP 06/02/19 08:20 06/02/19 08:20 INR, PTT INR 1.12 (0.83-1.09) H 06/01/19 06:20 Assessment/Plan Problem List - Problem (1) Ischemic colitis Code(s): K55.9 - VASCULAR DISORDER OF INTESTINE, UNSPECIFIED (2) Hypertension Code(s): I10 - ESSENTIAL (PRIMARY) HYPERTENSION (3) Hyperlipidemia Code(s): E78.5 - HYPERLIPIDEMIA, UNSPECIFIED (4) Prophylactic antibiotic Code(s): Z79.2 - DIRECTOR SEARCH (CURRENT) USE OF ANTIBIOTICS (5) Skin lesion Assessment/Plan: history, skin lesion removed 2015 Code(s): L98.9 - DISORDER OF THE SKIN AND SUBCUTANEOUS TISSUE, UNSPECIFIED Code(s): Z29.9 - ENCOUNTER FOR PROPHYLACTIC MEASURES, UNSPECIFIED plan continue abx monitor for bleeding rest as per the team
--- NOTE | 2019-06-02 16:01 | PN ---
Physical Exam: SUBJECTIVE: Patient seen and examined at the bedside. tolerating regular diet today, c/o of persistent neck pain. states neck pain is severe at times, takes advil at home but advised her that she can no longer take NSAIDs as she has developed a GI bleed. Neck pain is intolerable and she is asking for a neurologist to evaluate. OBJECTIVE: Patient is an 78 year old female with a significant past medical history of arthritic neck pain, hypertension, hyperlipidemia that comes in to [facility] ED with two days of generalized abdominal cramps and pain with the urge to defecate. She reports having rectal bleeding a few times at home. Patient takes Advil at home for neck pain and states neck pain has been chronic for years. She is being admitted for ischemic colitis/gi bleed. She has been started on a regular diet and her antibiotics are now discontinued. If no further bleeding overnight, can discharge home tomorrow. She will need a colonoscopy in 6 weeks. will send for a cervical CT spine for persistent neck pain. neuro consulted. Vital Signs Period Temp Pulse Resp BP Sys/Montiel Pulse Ox Last 24 Hr 98.0 F-98.9 F 68-88 16-20 142-151/62-74 97-97 GENERAL: Awake, alert, and fully oriented, in no acute distress. HEAD: Normal with no signs of trauma. EYES: Pupils equal, round and reactive to light, extraocular movements intact, sclera anicteric, conjunctiva clear. No lid lag. EARS, NOSE, THROAT: Ears normal, nares patent, oropharynx clear without exudates. Moist mucous membranes. NECK: Normal range of motion, supple without lymphadenopathy, JVD, or masses. LUNGS: Breath sounds equal, clear to auscultation bilaterally. HEART: Regular rate and rhythm, normal S1 and S2 without murmur, rub or gallop. ABDOMEN: Soft, nontender, non distended MUSCULOSKELETAL: Normal range of motion at all joints. No bony deformities or tenderness. No CVA tenderness. UPPER EXTREMITIES: No peripheral edema. LOWER EXTREMITIES: No peripheral edema. NEUROLOGICAL: Normal speech. Normal gait. PSYCHIATRIC: Cooperative. Good eye contact. Appropriate mood and affect. SKIN: Warm, dry, normal turgor, no rashes or lesions noted, normal capillary refill. Laboratory Results - last 24 hr 06/01/19 06/02/19 06/02/19 23:14 05:26 07:00 WBC RBC Hgb Hct MCV MCH MCHC RDW Plt Count MPV Absolute Neuts (auto) Neutrophils % Lymphocytes % Monocytes % Eosinophils % Basophils % Nucleated RBC % Sodium Potassium Chloride Carbon Dioxide Anion Gap BUN Creatinine Est GFR (CKD-EPI)AfAm Est GFR (CKD-EPI)NonAf POC Glucometer 64 54 128 Random Glucose Calcium Magnesium Total Bilirubin AST ALT Alkaline Phosphatase Total Protein Albumin 06/02/19 06/02/19 06/02/19 08:20 08:20 11:49 WBC 7.1 RBC 3.58 L Hgb 10.7 Hct 32.2 L MCV 90.1 MCH 30.0 MCHC 33.3 RDW 13.5 Plt Count 131 L MPV 8.7 Absolute Neuts (auto) 5.7 Neutrophils % 79.9 Lymphocytes % 14.6 D Monocytes % 4.3 Eosinophils % 0.6 Basophils % 0.6 Nucleated RBC % 0 Sodium 143 Potassium 3.4 L Chloride 114 H Carbon Dioxide 24 Anion Gap 5 L BUN 13.6 Creatinine 0.6 Est GFR (CKD-EPI)AfAm 99.77 Est GFR (CKD-EPI)NonAf 86.09 POC Glucometer 57 Random Glucose 107 H Calcium 7.5 L Magnesium 1.9 Total Bilirubin 0.6 AST 17 ALT 18 Alkaline Phosphatase 62 Total Protein 5.0 L Albumin 2.8 L Active Medications Generic Name Dose Route Start Last Admin Trade Name Freq PRN Reason Stop Dose Admin Acetaminophen 650 mg 06/02/19 10:39 Tylenol - PO Q6H PRN PAIN LEVEL 7 - 10 Sodium Chloride 1,000 mls @ 100 mls/hr 05/31/19 17:34 06/01/19 23:59 Normal Saline - IV 100 mls/hr ASDIR [facility] Administration ASSESSMENT/PLAN: Problem List - Problems (1) Ischemic colitis Assessment/Plan: no further rectal bleeding. hmg/hct stable. stopped all antibiotics and placed on a regular diet per GI. restart home medications. Code(s): K55.9 - VASCULAR DISORDER OF INTESTINE, UNSPECIFIED (2) Neck pain Assessment/Plan: reports neck pain at home that was relieved by advil. she took advil as needed , but did take daily. now presents with a GI bleed like 2/2 to NSAIDs. 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 will need to follow up outpatient. Code(s): M54.2 - CERVICALGIA (3) Hypertension Assessment/Plan: restart home meds Code(s): I10 - ESSENTIAL (PRIMARY) HYPERTENSION (4) Hyperlipidemia Assessment/Plan: restart home meds Code(s): E78.5 - HYPERLIPIDEMIA, UNSPECIFIED (5) Prophylactic antibiotic Assessment/Plan: levaquin and flagyl for ischemic colitis discontinued Code(s): Z79.2 - NURSING HOME (CURRENT) USE OF ANTIBIOTICS (6) Skin lesion Assessment/Plan: history, skin lesion removed 2015 Code(s): L98.9 - DISORDER OF THE SKIN AND SUBCUTANEOUS TISSUE, UNSPECIFIED (7) Prophylactic measure Assessment/Plan: fen stop ivf regular diet. monitor for any bleeding overnight. full code Code(s): Z29.9 - ENCOUNTER FOR PROPHYLACTIC MEASURES, UNSPECIFIED Visit type - Emergency Visit Emergency Visit: Yes ED Registration Date: 05/31/19 Care time: The patient presented to the Emergency Department on the above date and was hospitalized for further evaluation of their emergent condition. - New Patient This patient is new to me today: No - Critical Care Critical Care patient: No - Discharge Referral Referred to [facility].: No
[2019-06-02] MEDS: SERTRALINE HCL 25 MG TABLET (FP) PO SCH (17:23)
[2019-06-02] MEDS: LOSARTAN POTASSIUM 25 MG TABLET PO SCH (17:24)
[2019-06-02] MEDS ORDERED: ATORVASTATIN CA 10 MG TABLET (FP) PO SCH (22:00)
[2019-06-03 09:09] LABS: BASO % 0.8 % (0-2.0); EOS % 6.5 % (0-4.5); HEMATOCRIT 37.5 % (32.4-45.2); HEMOGLOBIN 12.7 GM/dL (10.7-15.3); LYMPH % 22.3 % (8-40); MCH 30.6 pg (25.7-33.7); MCHC 33.7 g/dl (32.0-36.0); MEAN CELL VOLUME 90.7 fl (80-96); MEAN PLT VOLUME 9.3 fl (7.5-11.1); MONO % 5.7 % (3.8-10.2); NEUT % 64.7 % (42.8-82.8); PLATELET COUNT 165 K/MM3 (134-434); RBC 4.14 M/mm3 (3.60-5.2); RDW 13.6 % (11.6-15.6); WHITE BLOOD COUNT 6.8 K/mm3 (4.0-10.0)
--- NOTE | 2019-06-03 09:32 | CONSULT ---
Consult - text type - Consultation Consultation Note: Neurology CHIEF COMPLAINT: abdominal pain, rectal bleeding at home PCP: Dr. Butler HISTORY OF PRESENT ILLNESS: 78 year old female with a significant past medical history of arthritic neck pain, hypertension, hyperlipidemia that comes in to [facility] ED with two days of generalzed abdominal cramps and pain with the urge to defecate. She reports having rectal bleeding a few times last night at home. Patient reported straining to have a bowel movement at home and had a bloody bowel movement, followed by more bloody bowel movements throughout the night. She denies any nausea or vomiting currently but had nausea/vomiting last night. Patient takes Advil throughout the day for neck pain and states neck pain has been chronic for years. She has seen a neurologist but not currently. She takes Advil is the only medication that has helped her for the neck pain. In the ED her hmg/ hct remained stable and since admission reports three episodes of GI bleed associated with abdominal cramps that are severe. Admitted for colitis, with consent for GI bleeding. Neurology consulted due to cervicalgia and patient with excessive NSAIDs use. Patient informed me that the pain is in her neck and previously right-sided but no also more left-sided and can radiate upwards to her head. We discussed cyclobenzaprine which she reports taking but only as needed. I advised her that taking the medication daily and more frequently may help reduce her discomfort. It seems likely to be cervicalgia with some component of cervical radiculopathy. She did complete noncontrast CT of the cervical spine and we are awaiting the final report, reviewed images and noted degenerative disc disease as well as multilevel disc protrusions likely etiology to her complaints. May require subsequent MRI. Advised to follow up outpatient for further management. Alternative treatment options include pain management, trigger point injections, and surgical management however she is strongly opposed to surgical intervention and no focal deficits indicating that that would be necessary. Recent Travel: denies PAST MEDICAL HISTORY: arthritic neck pain, hypertension, hyperlipidemia PAST SURGICAL HISTORY: colonoscopy in past, does not recall results, right groin lesion/mass with excision 2015 Social History: Smoking: denies Alcohol: none reported Drugs: none reported Family: HTN Allergies Penicillins Allergy (Verified 05/31/19 08:52) Tetanus Vaccines and Toxoid [Tetanus Vaccines & Toxoid] Allergy (Verified 08:52) HOME MEDICATIONS: Home Medications Medication Instructions Recorded Chlorpheniramine Maleate [Allergy 4 mg PO PRN 05/31/19 Relief] Ibuprofen [Advil -] 200 mg PO PRN PRN 05/31/19 Sertraline HCl 75 mg PO DAILY 05/31/19 Active Medications Acetaminophen (Tylenol -) 650 mg PO Q6H PRN PRN Reason: PAIN LEVEL 7 - 10 Atorvastatin Calcium (Lipitor -) 10 mg PO HS [facility] Last Admin: 06/02/19 21:36 Dose: 10 mg Sodium Chloride (Normal Saline -) 1,000 mls @ 100 mls/hr IV ASDIR [facility] Last Admin: 06/01/19 23:59 Dose: 100 mls/hr Losartan Potassium (Cozaar -) 25 mg PO DAILY [facility] Last Admin: 06/02/19 17:24 Dose: 25 mg Sertraline HCl (Zoloft -) 75 mg PO DAILY [facility] Last Admin: 06/02/19 17:23 Dose: 75 mg REVIEW OF SYSTEMS CONSTITUTIONAL: Absent: fever, chills, diaphoresis, generalized weakness, malaise, loss of appetite, weight change HEENT: Absent: rhinorrhea, nasal congestion, throat pain, throat swelling, difficulty swallowing, mouth swelling, ear pain, eye pain, visual changes CARDIOVASCULAR: Absent: chest pain, syncope, palpitations, irregular heart rate, lightheadedness , peripheral edema RESPIRATORY: Absent: cough, shortness of breath, dyspnea with exertion, orthopnea, wheezing, stridor, hemoptysis GASTROINTESTINAL: present: abdominal pain, nausea GENITOURINARY: Absent: dysuria, frequency, urgency, hesitancy, hematuria, flank pain, genital pain MUSCULOSKELETAL: Absent: myalgia, arthralgia, joint swelling, back pain, neck pain SKIN: Absent: rash, itching, pallor HEMATOLOGIC/IMMUNOLOGIC: Absent: easy bleeding, easy bruising, lymphadenopathy, frequent infections ENDOCRINE: Absent: unexplained weight gain, unexplained weight loss, heat intolerance, cold intolerance NEUROLOGIC: Absent: headache, focal weakness or paresthesias, dizziness, unsteady gait, seizure, mental status changes, bladder or bowel incontinence PSYCHIATRIC: Absent: anxiety, depression, suicidal or homicidal ideation, hallucinations. PHYSICAL EXAMINATION Vital Signs Period Temp Pulse Resp BP Sys/Montiel Pulse Ox Last 24 Hr 97.9 F-98.9 F 71-87 18-18 138-149/69-72 97 GENERAL: Awake, alert, and fully oriented, in no acute distress. HEAD: Normal with no signs of trauma. EYES: Pupils equal, round and reactive to light, extraocular movements intact, sclera anicteric, conjunctiva clear. No lid lag. EARS, NOSE, THROAT: Ears normal, nares patent, oropharynx clear without exudates. Moist mucous membranes. NECK: Normal range of motion, supple without lymphadenopathy, JVD, or masses. LUNGS: Breath sounds equal, clear to auscultation bilaterally. HEART: Regular rate and rhythm, normal S1 and S2 without murmur, rub or gallop. ABDOMEN: Soft, nontender, some pain on lower quadrants with light palpation, non distended MUSCULOSKELETAL: Normal range of motion at all joints. No bony deformities or tenderness. No CVA tenderness. UPPER EXTREMITIES: No peripheral edema. LOWER EXTREMITIES: No peripheral edema. NEUROLOGICAL: Normal speech. Normal gait. PSYCHIATRIC: Cooperative. Good eye contact. Appropriate mood and affect. SKIN: Warm, dry, normal turgor, no rashes or lesions noted, normal capillary refill. Laboratory Results - last 24 hr 05/31/19 05/31/19 05/31/19 11:00 11:00 11:00 WBC 8.8 RBC 4.52 Hgb 13.6 Hct 40.5 MCV 89.7 MCH 30.0 MCHC 33.4 RDW 13.6 Plt Count 181 MPV 9.6 Absolute Neuts (auto) 7.8 Neutrophils % 89.5 H D Lymphocytes % 8.2 D Monocytes % 2.2 L Eosinophils % 0.0 D Basophils % 0.1 Nucleated RBC % 0 PT with INR INR PTT (Actin FS) Sodium 141 Potassium 3.7 Chloride 104 Carbon Dioxide 28 Anion Gap 8 BUN 30.0 H Creatinine 1.0 Est GFR (CKD-EPI)AfAm 61.62 Est GFR (CKD-EPI)NonAf 53.17 Random Glucose 153 H Lactic Acid 1.5 Calcium 9.0 Total Bilirubin 0.7 AST 22 ALT 26 Alkaline Phosphatase 95 Total Protein 7.6 Albumin 4.2 Total Amylase 80 Lipase 77 Stool Occult Blood Blood Type Antibody Screen 05/31/19 05/31/19 05/31/19 11:00 11:00 11:00 WBC RBC Hgb Hct MCV MCH MCHC RDW Plt Count MPV Absolute Neuts (auto) Neutrophils % Lymphocytes % Monocytes % Eosinophils % Basophils % Nucleated RBC % PT with INR 11.60 INR 0.98 PTT (Actin FS) 24.5 L Sodium Potassium Chloride Carbon Dioxide Anion Gap BUN Creatinine Est GFR (CKD-EPI)AfAm Est GFR (CKD-EPI)NonAf Random Glucose Lactic Acid Calcium Total Bilirubin AST ALT Alkaline Phosphatase Total Protein Albumin Total Amylase Lipase Stool Occult Blood Positive Blood Type O POSITIVE Antibody Screen Negative ASSESSMENT/PLAN: Admitted for colitis, with consent for GI bleeding. Neurology consulted due to cervicalgia and patient with excessive NSAIDs use. Patient informed me that the pain is in her neck and previously right-sided but no also more left-sided and can radiate upwards to her head. We discussed cyclobenzaprine which she reports taking but only as needed. I advised her that taking the medication daily and more frequently may help reduce her discomfort. It seems likely to be cervicalgia with some component of cervical radiculopathy. She did complete noncontrast CT of the cervical spine and we are awaiting the final report. Advised to follow up outpatient for further management. Alternative treatment options include pain management, trigger point injections, and surgical management however she is strongly opposed to surgical intervention and no focal deficits indicating that that would be necessary. Will initiate cyclobenzaprine 5 mg 3 times a day in hopes that this will provide adequate relief for cervicalgia. Do not feel she requires neuropathic medication such as gabapentin at this time but did aadvise her to follow up as an outpatient for further management. Follow-up official read for cervical spine CT. monitor blood pressure, maintain normotensive range, continue statin for hyperlipidemia..
[2019-06-03] MEDS: LOSARTAN POTASSIUM 25 MG TABLET PO SCH (09:42)
[2019-06-03] MEDS: SERTRALINE HCL 25 MG TABLET (FP) PO SCH (09:42)
[2019-06-03 09:45] LABS: ALBUMIN 3.5 g/dl (3.4-5.0); BILIRUBIN,TOTAL 0.8 mg/dL (0.2-1); BLOOD UREA NITROGEN 15.2 mg/dL (7-18); CALCIUM 8.5 mg/dL (8.5-10.1); CREATININE 0.8 mg/dL (0.55-1.3); MAGNESIUM 2.1 mg/dL (1.8-2.4); POTASSIUM 4.2 mmol/L (3.5-5.1); TOT PROT 6.1 g/dl (6.4-8.2)
--- NOTE | 2019-06-03 10:25 | PN ---
Progress Note, Physician History of Present Illness: stable bleeding stopped since last night - Current Medication List Current Medications: Active Medications Acetaminophen (Tylenol -) 650 mg PO Q6H PRN PRN Reason: PAIN LEVEL 7 - 10 Atorvastatin Calcium (Lipitor -) 10 mg PO HS [facility] Last Admin: 06/02/19 21:36 Dose: 10 mg Sodium Chloride (Normal Saline -) 1,000 mls @ 100 mls/hr IV ASDIR [facility] Last Admin: 06/01/19 23:59 Dose: 100 mls/hr Losartan Potassium (Cozaar -) 25 mg PO DAILY [facility] Last Admin: 06/03/19 09:42 Dose: 25 mg Sertraline HCl (Zoloft -) 75 mg PO DAILY [facility] Last Admin: 06/03/19 09:42 Dose: 75 mg - Objective Vital Signs: Vital Signs Temperature 98.3 F 06/03/19 06:00 Pulse Rate 71 06/03/19 06:00 Respiratory Rate 18 06/03/19 06:00 Blood Pressure 149/72 06/03/19 06:00 O2 Sat by Pulse Oximetry (%) 97 06/02/19 21:00 Constitutional: Yes: No Distress, Calm Cardiovascular: Yes: S1, S2 Respiratory: Yes: Regular, CTA Bilaterally Gastrointestinal: Yes: Normal Bowel Sounds, Soft Musculoskeletal: Yes: WNL Extremities: Yes: WNL Neurological: Yes: Alert, Oriented Psychiatric: Yes: Alert, Oriented Labs: CBC, BMP 06/03/19 08:20 06/03/19 08:20 INR, PTT INR 1.12 (0.83-1.09) H 06/01/19 06:20 Assessment/Plan Problem List - Problem (1) Ischemic colitis Code(s): K55.9 - VASCULAR DISORDER OF INTESTINE, UNSPECIFIED (2) Hypertension Code(s): I10 - ESSENTIAL (PRIMARY) HYPERTENSION (3) Hyperlipidemia Code(s): E78.5 - HYPERLIPIDEMIA, UNSPECIFIED (4) Prophylactic antibiotic Code(s): Z79.2 - CORRECTION (CURRENT) USE OF ANTIBIOTICS (5) Skin lesion Assessment/Plan: history, skin lesion removed 2015 Code(s): L98.9 - DISORDER OF THE SKIN AND SUBCUTANEOUS TISSUE, UNSPECIFIED Code(s): Z29.9 - ENCOUNTER FOR PROPHYLACTIC MEASURES, UNSPECIFIED plan continue current mgmt rest as per the team
[2019-06-03] MEDS ORDERED: [UNRECOGNIZED DRUG - REMARK] PO ONE (11:27)
[2019-06-03] MEDS ORDERED: LORATADINE 10 MG TABLET PO ONE (12:00)
--- NOTE | 2019-06-03 12:14 | PN.GI ---
GI Progress Note Subjective: No further abdominal pain or diarrhea. No BPR. Tolerating PO. - Objective Vital Signs: Vital Signs Temperature 98.4 F 06/03/19 10:00 Pulse Rate 77 06/03/19 10:00 Respiratory Rate 18 06/03/19 10:00 Blood Pressure 133/77 06/03/19 10:00 O2 Sat by Pulse Oximetry (%) 97 06/03/19 09:00 Constitutional: Well Nourished, No Distress Gastrointestinal Inspection: Yes: WNL ...Auscultate: Yes: Normoactive Bowel Sounds ...Palpate: No: Mass, Tenderness Labs: CBC, BMP 06/03/19 08:20 06/03/19 08:20 INR, PTT INR 1.12 (0.83-1.09) H 06/01/19 06:20 Assessment/Plan Resolving ischemic colitis. Follow up colonoscopy in 6 weeks as noted by Dr. Shepherd in [place] yesterday
[2019-06-03] MEDS ORDERED: CYCLOBENZAPRINE HCL 5 MG TABLET PO SCH (14:00)
--- NOTE | 2019-06-03 14:25 | DS ---
Physical Exam: SUBJECTIVE: Patient seen and examined OBJECTIVE: Vital Signs Period Temp Pulse Resp BP Sys/Montiel Pulse Ox Last 24 Hr 97.9 F-98.9 F 71-80 18-18 133-149/69-77 97-97 PHYSICAL EXAM GENERAL: The patient is awake, alert, and fully oriented, in no acute distress. HEAD: Normal with no signs of trauma. EYES: PERRL, extraocular movements intact, sclera anicteric, conjunctiva clear. ENT: Ears normal, nares patent, oropharynx clear without exudates, moist mucous membranes. NECK: Trachea midline, full range of motion, supple. LUNGS: Breath sounds equal, clear to auscultation bilaterally, no wheezes, no crackles, no accessory muscle use. HEART: Regular rate and rhythm, S1, S2 without murmur, rub or gallop. ABDOMEN: Soft, nontender, nondistended, normoactive bowel sounds, no guarding, no rebound, no hepatosplenomegaly, no masses. EXTREMITIES: 2+ pulses, warm, well-perfused, no edema. NEUROLOGICAL: Cranial nerves II through XII grossly intact. Normal speech, gait not observed. PSYCH: Normal mood, normal affect. SKIN: Warm, dry, normal turgor, no rashes or lesions noted. LABS Laboratory Results - last 24 hr 06/03/19 06/03/19 06/03/19 05:52 08:20 08:20 WBC 6.8 RBC 4.14 Hgb 12.7 Hct 37.5 D MCV 90.7 MCH 30.6 MCHC 33.7 RDW 13.6 Plt Count 165 D MPV 9.3 Absolute Neuts (auto) 4.4 Neutrophils % 64.7 Lymphocytes % 22.3 D Monocytes % 5.7 Eosinophils % 6.5 H D Basophils % 0.8 Nucleated RBC % 0 Sodium 145 Potassium 4.2 Chloride 112 H Carbon Dioxide 29 Anion Gap 4 L BUN 15.2 Creatinine 0.8 Est GFR (CKD-EPI)AfAm 80.70 Est GFR (CKD-EPI)NonAf 69.63 POC Glucometer 101 Random Glucose 126 H Calcium 8.5 Magnesium 2.1 Total Bilirubin 0.8 AST 22 ALT 22 Alkaline Phosphatase 72 Total Protein 6.1 L Albumin 3.5 06/03/19 11:39 WBC RBC Hgb Hct MCV MCH MCHC RDW Plt Count MPV Absolute Neuts (auto) Neutrophils % Lymphocytes % Monocytes % Eosinophils % Basophils % Nucleated RBC % Sodium Potassium Chloride Carbon Dioxide Anion Gap BUN Creatinine Est GFR (CKD-EPI)AfAm Est GFR (CKD-EPI)NonAf POC Glucometer 96 Random Glucose Calcium Magnesium Total Bilirubin AST ALT Alkaline Phosphatase Total Protein Albumin HOSPITAL COURSE: Date of Admission:05/31/19 Date of Discharge: 06/03/19 Discharge Summary Problems reviewed: Yes Reason For Visit: LOWER GASTROINTESTINAL HEMORRHAGE Current Active Problems Colitis (Acute) Hyperlipidemia (Acute) Hypertension (Acute) Ischemic colitis (Acute) Neck pain (Acute) Prophylactic antibiotic (Acute) Prophylactic measure (Acute) Condition: Stable - Instructions Diet, Activity, Other Instructions: Mrs Sherman: You were admitted for GI bleeding and you were monitored at [facility]. You were seen by the surgical services manager. Please note that you will need a colonoscopy in 6 weeks. Please call his office for an appointment. Also, Please see Dr. Villalobos for your persistent neck pain. DO NOT TAKE ADVIL, MOTRIN, ALEVE or ASPIRIN or any other NSAIDs. Please follow up with neurlogist , Dr. Villalobos. Your CT of neck shows that you have degenerative disc disease. What is degenerative disc disease? degenerative disc disease is a condition of the discs between the vertebrae with loss of cushioning. For pain, take Tylenol as needed but to not exceed 4000mg per day. You can also use [place] patches (over the counter). thank you for allowing us to care for you ] Referrals: Misael Villalobos MD [Staff Physician] - Michael Shepherd MD [Staff Physician] - Disposition: HOME - Home Medications Comprehensive Discharge Medication List: Ambulatory Orders Chlorpheniramine Maleate [Allergy Relief] 4 mg PO PRN 05/31/19 Sertraline HCl 75 mg PO DAILY 05/31/19 Problem List - Problems (1) Ischemic colitis Code(s): K55.9 - VASCULAR DISORDER OF INTESTINE, UNSPECIFIED (2) Neck pain Code(s): M54.2 - CERVICALGIA (3) Hypertension Code(s): I10 - ESSENTIAL (PRIMARY) HYPERTENSION (4) Hyperlipidemia Code(s): E78.5 - HYPERLIPIDEMIA, UNSPECIFIED (5) Prophylactic antibiotic Code(s): Z79.2 - MCC (CURRENT) USE OF ANTIBIOTICS (6) Skin lesion Code(s): L98.9 - DISORDER OF THE SKIN AND SUBCUTANEOUS TISSUE, UNSPECIFIED (7) Prophylactic measure Code(s): Z29.9 - ENCOUNTER FOR PROPHYLACTIC MEASURES, UNSPECIFIED - Discharge Referral Referred to [facility] No
[2019-06-03 15:04] VITALS: BP 145/66; PULSE 70; TEMP 98.3
== END 2019-06-03 16:10 | disposition home or self-care (01) | DRG 394 ==
LOC: JER 08:34 → JERBED 14:07 → J7W 17:12
PROVIDERS: ADMIT Hospitalist; ATTEND Nurse Practitioner Family
DX: K55.9 Vascular disorder of intestine, unspecified (principal); K92.2 Gastrointestinal hemorrhage, unspecified; I10 Essential (primary) hypertension; E78.5 Hyperlipidemia, unspecified; M54.12 Radiculopathy, cervical region; L98.9 Disorder of the skin and subcutaneous tissue, unspecified; F32.9 Major depressive disorder, single episode, unspecified; M54.2 Cervicalgia; Z88.0 Allergy status to penicillin
CPT/HCPCS: 36415; 72125-TC; 74177-TC; 80048; 80053; 82150; 82272; 82962; 83605; 83690; 83735; 84100; 85025; 85027; 85610; 85730; 86140; 86850; 86900; 86901; 87040; 93005; 93010; 99283-25; J7030

== ENCOUNTER 2019-08-06 09:08 | Day surgery (SDC) | payer OTHER, BC ==
[2019-08-02 15:38] VITALS: BMI 25.9
[2019-08-06 10:57] VITALS: TEMP 97.6
[2019-08-06 17:44] VITALS: BP 143/66; PULSE 69
== END 2019-08-06 11:50 | disposition home or self-care (01) ==
LOC: JASU-ENDO 09:08
PROVIDERS: ATTEND Internal Medicine Gastroenterology
PROC: 0DJD8ZZ Inspection of Lower Intestinal Tract, Via Natural or Artificial Opening Endoscopic (ICD-10-PCS; principal; 2019-08-06 09:45)
DX: K57.30 Diverticulosis of large intestine without perforation or abscess without bleeding (principal)

== ENCOUNTER 2023-12-14 15:00 | Emergency (ER) | payer OTHER, BC ==
[2023-12-14 15:16] VITALS: BP 137/72; PULSE 74; RESP 18; TEMP 98.3; BMI 25.3
[2023-12-14] MEDS: SODIUM CHLORIDE 0.9% 500 ML INFUS.BAG IV ONE (16:15)
[2023-12-14 16:24] LABS: HEMATOCRIT 39.7 % (32.4-45.2); HEMOGLOBIN 13.2 G/dL (10.7-15.3); MCHC 33.4 g/dl (32.0-36.0); MEAN CELL VOLUME 90.1 fl (80-96); MEAN PLT VOLUME 9.6 fl (7.5-11.1); PLATELET COUNT 155.9 10^3/uL (134-434); RBC 4.41 10^6/uL (3.60-5.2); RDW 14.2 % (11.6-15.6); WHITE BLOOD COUNT 6.6 10^3/uL (4.0-10.8)
[2023-12-14] MEDS ORDERED: ACETAMINOPHEN INJECTION 100 ML IVPB ONE (16:24)
[2023-12-14] MEDS ORDERED: ONDANSETRON 4 MG/2 ML VIAL ONE (16:24)
[2023-12-14] MEDS: ONDANSETRON 4 MG/2 ML VIAL IVPUSH ONE (16:25)
[2023-12-14] MEDS: ACETAMINOPHEN 1000 MG/100 ML BAG IVPB ONE (16:29)
[2023-12-14 16:58] LABS: ALBUMIN 4.3 g/dl (3.4-5.0); BILIRUBIN,TOTAL 0.5 mg/dl (0.2-1); CALCIUM 9.1 mg/dl (8.5-10.1); CREATININE 1.2 mg/dl (0.6-1.3); POTASSIUM 4.5 mmol/L (3.5-5.1); TOT PROT 6.6 g/dl (6.4-8.2)
[2023-12-14 19:54] LABS: PLATELET ESTIMATE ADEQUATE
== END 2023-12-14 19:18 | disposition home or self-care (01) ==
LOC: FER 15:00
PROC: 3E033NZ Introduction of Analgesics, Hypnotics, Sedatives into Peripheral Vein, Percutaneous Approach (ICD-10-PCS; principal; 2023-12-14)
PROC: 3E033GC Introduction of Other Therapeutic Substance into Peripheral Vein, Percutaneous Approach (ICD-10-PCS; 2023-12-14)
DX: K57.90 Diverticulosis of intestine, part unspecified, without perforation or abscess without bleeding (principal); K62.5 Hemorrhage of anus and rectum; R11.2 Nausea with vomiting, unspecified; R10.30 Lower abdominal pain, unspecified
CPT/HCPCS: 36415; 74177-TC; 80053; 83690; 85027; 86850; 86900; 86901; 93005; 99285-25; J0131; Q9967